=== PATIENT | male | born 1980 | race Caucasian/White ===

== ENCOUNTER 2018-09-30 13:52 | Emergency (ER) | payer OTHER ==
[~2018-09-30] VITALS: Ht 167.6 cm; Wt 85.8 kg
[2018-09-30 13:55] VITALS: BP 151/101
[2018-09-30] MEDS ORDERED: NACL 0.9% 1,000 ML IV SCH (14:06)
[2018-09-30] MEDS ORDERED: KETOROLAC 30 MG/ML VIAL IVP ONE (14:10)
[2018-09-30] MEDS ORDERED: MORPHINE SULFATE 4 MG/ML SYR IVP ONE ×2 (14:10→15:35)
[2018-09-30] MEDS ORDERED: ONDANSETRON 4 MG/2 ML VIAL IVP ONE (14:10)
[2018-09-30 14:28] LABS: BASOPHILS # (AUTO) 0.1 K/uL (0.00-0.22); BASOPHILS % (AUTO) 0.8 % (0.0-2.0); EOSINOPHILS # (AUTO) 0.2 K/uL (0-0.4); EOSINOPHILS % (AUTO) 1.6 % (0.0-4.0); HEMATOCRIT 41.7 % (36-52); HEMOGLOBIN 14.5 g/dL (12.0-18.0); LYMPHOCYTES # (AUTO) 2.8 K/uL (2.0-11.5); LYMPHOCYTES % (AUTO) 26.3 % (20.5-51.1); MEAN CORPUSCULAR HEMOGLOBIN 30 pg (27-31); MEAN CORPUSCULAR HGB CONC 35 g/dL (33-37); MEAN CORPUSCULAR VOLUME 85.4 fL (80-94); MONOCYTES # (AUTO) 0.8 K/uL (0.8-1.0); MONOCYTES % (AUTO) 7.6 % (1.7-9.3); NEUTROPHILS # (AUTO) 6.8 K/uL (1.8-7.7); NEUTROPHILS % (AUTO) 63.7 % (42.2-75.2); PLATELET COUNT (AUTO) 369 K/uL (140-450); RED BLOOD CELL COUNT(AUTO) 4.88 MIL/uL (4.20-6.10); RED CELL DISTRIBUTION WIDTH 12.9 % (11.6-13.7); WHITE BLOOD COUNT (AUTO) 10.6 K/uL (4.8-10.8)
[2018-09-30 14:42] LABS: ALBUMIN 3.7 g/dL (3.4-5.0); ANION GAP 10.8 (8-16); CARBON DIOXIDE 28.7 mmol/L (21-32); POTASSIUM 3.5 mmol/L (3.5-5.1); TOTAL BILIRUBIN 0.7 mg/dL (0.0-1.0)
[2018-09-30 16:07] VITALS: BP 141/88
== END 2018-09-30 16:07 | disposition home or self-care (01) ==
LOC: MED 13:52
DX: N23 Unspecified renal colic (principal)
CPT/HCPCS: 74176; 80053; 81002; 82150; 83690; 85025; 96374; 96375; 96376; 99284; J1885; J2270; J2405; J7030

== ENCOUNTER 2019-02-23 12:48 | Emergency (ER) | payer OTHER ==
[~2019-02-23] VITALS: Ht 167.6 cm; Wt 85.5 kg
[2019-02-23 12:52] VITALS: BP 134/77
--- NOTE | 2019-02-23 13:32 | NUR ---
c/o anterior chest wall pain upon hacking cough---bodyaches, fatigue, f/c
--- NOTE | 2019-02-23 14:19 | NUR ---
MARCELO FINK IN PT ROOM FOR EVALUATION
[2019-02-23 14:43] VITALS: BP 130/73
--- NOTE | 2019-02-23 14:43 | NUR ---
Patient discharged with v/s stable. Written and verbal after care instructions given and explained. Patient alert, oriented and verbalized understanding of instructions. Ambulatory with steady gait. All questions addressed prior to discharge. ID band removed. Patient advised to follow up with PMD. Rx of SUDAFED, PREDNISONE, MOTRIN, ALBUTEROL, AZITHROMYCIN given. Patient educated on indication of medication including possible reaction and side effects. Opportunity to ask questions provided and answered. PT GIVEN EXCUSE FROM WORK.
== END 2019-02-23 14:43 | disposition home or self-care (01) ==
LOC: MED 12:48
DX: J98.01 Acute bronchospasm (principal); J06.9 Acute upper respiratory infection, unspecified
CPT/HCPCS: 99283

== ENCOUNTER 2019-11-13 20:44 | Emergency (ER) | payer MEDICAID, OTHER ==
[~2019-11-13] VITALS: Ht 167.6 cm; Wt 93.2 kg
[2019-11-13 20:59] VITALS: BP 157/99
[2019-11-13] MEDS ORDERED: SODIUM CHLORIDE FLUSH 10 ML SYR IVF STA (21:21)
[2019-11-13 22:06] LABS: BASOPHILS % (AUTO) 0.2 % (0.0-2.0); EOSINOPHILS # (AUTO) 0.5 K/uL (0-0.4); EOSINOPHILS % (AUTO) 4.4 % (0.0-4.0); HEMATOCRIT 39.2 % (36-52); HEMOGLOBIN 13.8 g/dL (12.0-18.0); LYMPHOCYTES # (AUTO) 2.1 K/uL (2.0-11.5); LYMPHOCYTES % (AUTO) 18.6 % (20.5-51.1); MEAN CORPUSCULAR HEMOGLOBIN 30 pg (27-31); MEAN CORPUSCULAR HGB CONC 35 g/dL (33-37); MEAN CORPUSCULAR VOLUME 84.6 fL (80-94); NEUTROPHILS # (AUTO) 7.8 K/uL (1.8-7.7); NEUTROPHILS % (AUTO) 67.8 % (42.2-75.2); PLATELET COUNT (AUTO) 344 K/uL (140-450); RED BLOOD CELL COUNT(AUTO) 4.64 MIL/uL (4.20-6.10); RED CELL DISTRIBUTION WIDTH 13.2 % (11.6-13.7); WHITE BLOOD COUNT (AUTO) 11.4 K/uL (4.8-10.8)
--- NOTE | 2019-11-13 22:20 | NUR ---
pt ambulated to bed #7
--- NOTE | 2019-11-13 22:20 | NUR ---
BIBS. C/O WATERY DIARRHEA X6 DAYS. NO ABDOMINAL DISTENTION, NON-TENDER UPON PALPATION. HYPERACTIVE BS X 4 QUADS. PMH-NONE MEDS TAKEN- NONE. NKA.
[2019-11-13 22:31] LABS: ALBUMIN 3.6 g/dL (3.4-5.0); ANION GAP 6.8 (8-16); CARBON DIOXIDE 33.6 mmol/L (21-32); POTASSIUM 3.4 mmol/L (3.5-5.1); TOTAL BILIRUBIN 0.4 mg/dL (0.0-1.0)
--- NOTE | 2019-11-13 23:03 | NUR ---
DR VIZCAINO AT BEDSIDE.
[2019-11-13] MEDS ORDERED: DICYCLOMINE HCL LIQUID 20 MG, ALUMINUM HYD/MAG/SIMETHICONE 30 ML, LIDOCAINE VISCOUS 2% ... PO ONE ×3 (23:15)
[2019-11-13] MEDS ORDERED: NACL 0.9% 1,000 ML IV ONE (23:15)
[2019-11-13] MEDS ORDERED: LIDOCAINE VISCOUS 2% 20 ML UDC ONE (23:20)
[2019-11-13] MEDS ORDERED: ALUMINUM HYD/MAG/SIMETHICONE 30 ML UDC ONE (23:20)
[2019-11-13] MEDS ORDERED: DICYCLOMINE HCL LIQUID 10 MG/5 ML UDC ONE (23:20)
[2019-11-14 00:20] VITALS: BP 157/99
--- NOTE | 2019-11-14 00:20 | NUR ---
Patient discharged with v/s stable. Written and verbal after care instructions given and explained. Patient alert, oriented and verbalized understanding of instructions. Ambulatory with steady gait. All questions addressed prior to discharge. ID band removed. Patient advised to follow up with PMD. Rx of CIPROFLAXIN given. Patient educated on indication of medication including possible reaction and side effects. Opportunity to ask questions provided and answered.
== END 2019-11-14 00:20 | disposition home or self-care (01) ==
LOC: MED 20:44
DX: A08.4 Viral intestinal infection, unspecified (principal); R11.2 Nausea with vomiting, unspecified; E11.9 Type 2 diabetes mellitus without complications
CPT/HCPCS: 36415; 80053; 81002; 85025; 96360; 99283; J7030